=== PATIENT | female | born 1965 | race Hispanic/Latino ===

== ENCOUNTER 2016-06-14 11:15 | Observation (INO) | payer OTHER ==
[2016-06-14 12:28] VITALS: BMI 34.7
[2016-06-14 13:37] LABS: ADD MANUAL DIFF? NO
[2016-06-14 13:48] LABS: BASO # 0.03 K/mm3 (0.0-2.0); BASO % 0.5 % (0.0-3.0); EOS # 0.1 (0.0-0.7); EOS % 2.2 % (1.5-5.0); GRAN # 4.18 (1.4-6.5); GRAN % 70.8 % (50.0-68.0); HEMATOCRIT 24.4 % (36.0-48.0); LYMPH # 1.3 (1.2-3.4); LYMPH % 21.9 % (22.0-35.0); MEAN CELL VOLUME 63.5 fL (80.0-105.0); MEAN CORPUSCULAR HEMOGLOBIN 17.4 pg (25.0-35.0); MEAN CORPUSCULAR HGB CONC 27.5 g/dl (31.0-37.0); MEAN PLATELET VOLUME 9.1 fl (7.0-11.0); MONO # 0.3 (0.1-0.6); MONO % 4.6 % (1.0-6.0); PLATELET COUNT 446 10^3/uL (120.0-450.0); RED CELL DISTRIBUTION WIDTH 21.1 % (11.5-14.5); WHITE BLOOD COUNT 5.9 10^3/ul (4.5-11.0)
[2016-06-14 14:02] LABS: INR 0.93 (0.93-1.08); PARTIAL THROMBOPLASTIN TIME 21.7 Seconds (23.7-30.8)
[2016-06-14 14:10] LABS: ALB/GLOB RATIO 1.2 (1.1-1.8); ALKALINE PHOSPHATASE 74 U/L (38-133); ALT/SGPT 12 U/L (7-56); AST/SGOT 30 U/L (15-39); BILIRUBIN,TOTAL 0.4 mg/dL (0.2-1.3); BLOOD UREA NITROGEN 10 mg/dL (7-21); CALCIUM 9.2 mg/dL (8.4-10.5); CARBON DIOXIDE 26 mmol/L (21-33); CHLORIDE 104 mmol/L (98-107); GFR AFRICAN-AMERICAN > 60; GLUCOSE,RANDOM 94 mg/dL (70-110); POTASSIUM 3.8 mmol/L (3.6-5.0); SODIUM 139 mmol/L (132-148); TOTAL PROTEIN 7.4 g/dL (5.8-8.3)
--- NOTE | 2016-06-14 14:30 | ED PDOC ---
Arrival/HPI - General Chief Complaint: Abnormal Labs Time Seen by Provider: 06/14/16 12:35 Historian: Patient - History of Present Illness Narrative History of Present Illness (Text): 06/14/16 12:48 A 50 year old female is sent into the emergency by PMD for a lower hemoglobin count. Patient notes a history of anemia and has been transfused in the past. Patient last transfusion was on 11/2015. Patient reports 2 month ago she had a hysterectomy due to DUB. She denies any blood in her urine or stool. Patient notes generalized weakness but denies any headache or other complaints at this time. PMD: Dr. Asencio Past Medical History - Provider Review Nursing Documentation Reviewed: Yes - Cardiac Hx Hypertension: Yes - Hematological/Oncological Hx Anemia: Yes Hx Blood Transfusions: Yes Hx Blood Transfusion Reaction: No - Psychiatric Hx Substance Use: No - Surgical History Hx Hysterectomy: Yes Other/Comment: Bladder/kidney [id number] Family/Social History - Physician Review Nursing Documentation Reviewed: Yes Family/Social History: No Known Family HX Smoking Status: Never Smoked Hx Alcohol Use: No Hx Substance Use: No Allergies/Home Meds Allergies/Adverse Reactions: Allergies avocado Allergy (Verified 06/14/16 12:29) ANAPHYLAXIS bee venom protein (honey bee) Allergy (Verified 06/14/16 12:29) ANAPHYLAXIS iodine Allergy (Verified 06/14/16 12:29) ANAPHYLAXIS kiwi Allergy (Verified 06/14/16 12:29) RASH latex Allergy (Verified 06/14/16 12:29) RASH onion Allergy (Verified 06/14/16 12:29) ANAPHYLAXIS shellfish derived Allergy (Verified 06/14/16 12:29) ANAPHYLAXIS Sulfa (Sulfonamide Antibiotics) Allergy (Verified 06/14/16 12:29) ANGIOEDEMA Home Medications: Home Meds Medication Instructions Recorded Confirmed Unobtainable 06/14/16 06/14/16 Review of Systems - Physician Review All systems were reviewed & negative as marked: Yes - Review of Systems Constitutional: Fatigue Gastrointestinal: absent: Hematochezia Genitourinary Female: absent: Hematuria Physical Exam Vital Signs Reviewed: Yes Vital Signs Temp Pulse Resp BP Pulse Ox 06/14/16 13:43 69 18 168/86 H 100 06/14/16 12:32 98.0 F 76 16 178/98 H 100 Temperature: Afebrile Blood Pressure: Hypertensive Pulse: Regular Respiratory Rate: Normal Appearance: Positive for: Well-Appearing, Non-Toxic, Comfortable Pain Distress: None Mental Status: Positive for: Alert and Oriented X 3 - Systems Exam Head: Present: Atraumatic, Normocephalic Pupils: Present: PERRL Extroacular Muscles: Present: EOMI Conjunctiva: Present: Other (pale) Mouth: Present: Moist Mucous Membranes Neck: Present: Normal Range of Motion Respiratory/Chest: Present: Clear to Auscultation, Good Air Exchange. No: Respiratory Distress, Accessory Muscle Use Cardiovascular: Present: Regular Rate and Rhythm, Normal S1, S2. No: Murmurs Abdomen: Present: Normal Bowel Sounds. No: Tenderness, Distention, Peritoneal Signs Back: Present: Normal Inspection Upper Extremity: Present: Normal Inspection. No: Cyanosis, Edema Lower Extremity: Present: Normal Inspection. No: Edema Neurological: Present: GCS=15, CN II-XII Intact, Speech Normal Skin: Present: Warm, Dry, Normal Color. No: Rashes Psychiatric: Present: Alert, Oriented x 3, Normal Insight, Normal Concentration Medical Decision Making ED Course and Treatment: 06/14/16 12:48 Impression: A 50 year old female with a low hemoglobin count. Differential Diagnosis include but are not limited to: anemia Plan: -- Labs -- Urinalysis -- Reassess and disposition Progress Notes: 06/14/16 14:[address] Asencio, who is aware and agrees with the plan to place the patient in observation for symptomatic anemia. I have discussed the results and plan with the patient, who expresses understanding. Patient given the opportunity to ask question, all questions were answered and there is agreement with the plan to be admitted to the hospital. - Lab Interpretations Lab Results: 06/14/16 13:00 06/14/16 13:00 Lab Results 06/14/16 14:00: Blood Type Confirm A POSITIVE 06/14/16 13:00: WBC 5.9, RBC 3.84, Hgb 6.7 L*, Hct 24.4 L, MCV 63.5 L, MCH 17.4 L, MCHC 27.5 L, RDW 21.1 H, Plt Count 446, MPV 9.1, Gran % 70.8 H, Lymph % (Auto ) 21.9 L, [place] % (Auto) 4.6, Eos % (Auto) 2.2, Baso % (Auto) 0.5, Gran # 4.18, Lymph # 1.3, [place] # 0.3, Eos # 0.1, Baso # 0.03, PT 10.0, INR 0.93, APTT 21.7 L , Sodium 139, Potassium 3.8, Chloride 104, Carbon Dioxide 26, Anion Gap 13, BUN 10, Creatinine 0.7, Est GFR ( Amer) > 60, Est GFR (Non-Af Amer) > 60, Random Glucose 94, Calcium 9.2, Total Bilirubin 0.4, AST 30, ALT 12, Alkaline Phosphatase 74, Total Protein 7.4, Albumin 4.1, Globulin 3.3, Albumin/Globulin Ratio 1.2, Blood Type A POSITIVE, Antibody Screen Negative, Crossmatch See Detail, BBK History Checked No verified bt I have reviewed the lab results: Yes - Scribe Statement The provider has reviewed the documentation as recorded by the Alexiboswaldo Wolf Provider Scribe Attestation: All medical record entries made by the Alexiboswaldo were at my direction and personally dictated by me. I have reviewed the chart and agree that the record accurately reflects my personal performance of the history, physical exam, medical decision making, and the department course for this patient. I have also personally directed, reviewed, and agree with the discharge instructions and disposition. Disposition/Present on Arrival - Present on Arrival Any Indicators Present on Arrival: No History of DVT/PE: No History of Uncontrolled Diabetes: No Urinary Catheter: No History of Decub. Ulcer: No History Surgical Site Infection Following: None - Disposition Have Diagnosis and Disposition been Completed?: Yes Diagnosis: Anemia Disposition: HOSPITALIZED Disposition Time: 14:10 Patient Plan: Admission Condition: STABLE
--- NOTE | 2016-06-14 16:49 | CP.PCM.PN ---
Subjective - Date & Time of Evaluation Date of Evaluation: 06/14/16 Time of Evaluation: 16:45 - Subjective Subjective: called by nurse pt ,s bp is 206/96 .pt is on norvasc and losartan and has not taken her meds today. pt is very anxious.pt is admitted for anemia. Objective - Vital Signs/Intake and Output Vital Signs (last 24 hours): Temp Pulse Resp BP Pulse Ox 98.0 F 69 18 168/86 H 100 06/14/16 12:32 06/14/16 13:43 06/14/16 13:43 06/14/16 13:43 06/14/16 13:43 - Labs Labs: PT 10.0 Seconds (9.9-11.8) 06/14/16 13:00 INR 0.93 (0.93-1.08) 06/14/16 13:00 APTT 21.7 Seconds (23.7-30.8) L 06/14/16 13:00 - Constitutional Appears: No Acute Distress - Head Exam Head Exam: NORMOCEPHALIC - Eye Exam Eye Exam: Normal appearance Pupil Exam: PERRL - ENT Exam ENT Exam: Mucous Membranes Moist - Neck Exam Neck Exam: Full ROM - Respiratory Exam Respiratory Exam: Clear to Ausculation Bilateral, NORMAL BREATHING PATTERN - Cardiovascular Exam Cardiovascular Exam: RRR, +S1, +S2 - GI/Abdominal Exam GI & Abdominal Exam: Soft, Normal Bowel Sounds - Rectal Exam Rectal Exam: Deferred - Neurological Exam Neurological Exam: Alert, Awake, Oriented x3 - Psychiatric Exam Psychiatric exam: Anxious - Skin Skin Exam: Dry, Normal Color, Warm Assessment and Plan - Assessment and Plan (Free Text) Assessment: hypertensive urgency. anemia. Plan: will give stat dose of norvasc and losartan.and xanex 0.25mg x1 now. and repeat bp.
--- NOTE | 2016-06-14 18:07 | HP ---
HISTORY OF PRESENT ILLNESS: The patient is a 50-year-old female admitted through the Emergency Dep[facility] for anemia. The patient underwent total abdominal hysterectomy on 04/19/2016. She denies any perioperative transfusions. She presented to my office 2-3 days ago and had a hemoglobin of 6.7. She now presents with a hemoglobin of 6.7. She denies any vaginal bleeding. No melena, no bright red blood per rectum, no abdominal pain. No f emmy, no chills. She denies any hematuria. PAST MEDICAL HISTORY: Includes hypertension, history of migraine, history of peptic ulcer disease an d GERD. There is no history of diabetes mellitus or cancer. PAST SURGICAL HISTORY: Includes status post total abdominal hysterectomy on 04/19/2016. The patient is also status post ileal reconstructive surgery in 2001. ALLERGIES: THE PATIENT REPORTS MULTIPLE ALLERGIES INCLUDING ALLERGIES TO LATEX, SHELLFISH, KIWI, BEE POLLEN AND IODINE. CURRENT MEDICATIONS: Include losartan 50 mg daily, amlodipine 5 mg daily, Protonix 40 mg daily, Topa max 75 mg daily. SOCIAL HISTORY: She denies any history of tobacco, alcohol or drug use. She is independent with ADL s and IADLs. FAMILY HISTORY: Positive for heart disease, COPD and cancer. REVIEW OF SYSTEMS: Essentially negative other than above. There is no abdominal pain, no jaundice, no chest pain, no shortness of breath, no swelling of the legs. No nausea, no vomiting, no diarrhea. PHYSICAL EXAMINATION: GENERAL: The patient is a well-developed female in no acute distress. VITAL SIGNS: Blood pressure 204/96, pulse 72, temperature 98, respiratory rate 18. HEENT: Head is normocephalic, atraumatic. Pupils equal, round, reactive to light. Extraocular move ments intact. NECK: Supple, with no thyromegaly, no carotid bruit. LUNGS: Clear. HEART: Regular rate and rhythm with no murmurs, rubs or gallops. ABDOMEN: Soft, nontender, bowel sounds are normoactive. EXTREMITIES: Without cyanosis, clubbing, or edema. NEUROLOGIC: The patient is awake and oriented x 3 without focal sensory or motor deficits. SKIN: Warm and dry. LABORATORY DATA: WBC is 5.9, hemoglobin 6.7, hematocrit 24.4, MCV 63.5. Sodium was 139, potassium 3 .8, chloride 104, CO2 26, BUN 10, creatinine 0.7, glucose 94. PT is 10.0, PTT 21.7. IMPRESSION: 1. Anemia, status post total abdominal hysterectomy on 04/19/2016. Rule out retroperitoneal bleed. 2. History of peptic ulcer disease/gastroesophageal reflux disease, rule out gastrointestinal bleed. 3. Uncontrolled hypertension. 4. Migraine. PLAN: The patient is admitted to the medical-surgical floor. Will transfuse 2 units packed red cell s. Will order a CT of the abdomen and pelvis without contrast to rule out retroperitoneal bleed. Mo nitor hemoglobin and hematocrit. Continue present medications. Restart blood pressure medications. The patient denies taking her blood pressure medications today. Will obtain GI consult as well as c corine p.o. Protonix. Ric Asencio JD, MD cc: [id number] TT: 06/14/2016 18:06:29 sc
--- NOTE | 2016-06-14 23:35 | CP.PCM.PN ---
Subjective - Date & Time of Evaluation Date of Evaluation: 06/14/16 Time of Evaluation: 23:34 - Subjective Subjective: Earlier patient was seen for complaint of headache. Stated that she had frontal and occipital head ache.Mild head ache. She has history of migraines.Has been on topamax.Imitrex does not help. No aura.No other complaints. Later on asked for sleeping pill also. Pertinent medical record was reviewed. This 50 year old white woman was admitted for anemia. Has PMH of migraine,HTN,PUD,GERD, S/P ELVIS, S/P ileal reconstructive surgery. Objective - Vital Signs/Intake and Output Vital Signs (last 24 hours): Temp Pulse Resp BP Pulse Ox 98.1 F 82 20 138/96 H 100 06/14/16 23:19 06/14/16 23:19 06/14/16 23:19 06/14/16 23:19 06/14/16 16:00 Intake and Output: 06/14/16 06/15/16 18:59 06:59 Intake Total 0 1525 Balance 0 1525 - Medications Medications: Current Medications Alprazolam (Xanax) 0.25 mg PO BID PRN; Protocol PRN Reason: Anxiety Stop: 06/21/16 18:01 Amlodipine Besylate (Norvasc) 5 mg PO DAILY DENA Losartan Potassium (Cozaar) 50 mg PO DAILY DENA Pantoprazole Sodium (Protonix Ec Tab) 40 mg PO 0630 DENA Topiramate (Topamax) 75 mg PO DAILY DENA PRN Reason: Protocol - Labs Labs: PT 10.0 Seconds (9.9-11.8) 06/14/16 13:00 INR 0.93 (0.93-1.08) 06/14/16 13:00 APTT 21.7 Seconds (23.7-30.8) L 06/14/16 13:00 - Constitutional Appears: Well, No Acute Distress - Head Exam Head Exam: ATRAUMATIC, NORMAL INSPECTION, NORMOCEPHALIC - Eye Exam Eye Exam: Normal appearance - ENT Exam ENT Exam: Normal External Ear Exam - Neck Exam Neck Exam: Normal Inspection - Respiratory Exam Respiratory Exam: NORMAL BREATHING PATTERN - Cardiovascular Exam Cardiovascular Exam: absent: JVD - GI/Abdominal Exam GI & Abdominal Exam: absent: Distended - Rectal Exam Rectal Exam: Deferred - Extremities Exam Extremities Exam: Normal Inspection - Back Exam Back Exam: NORMAL INSPECTION - Neurological Exam Neurological Exam: Alert, Oriented x3 - Psychiatric Exam Psychiatric exam: Normal Affect, Normal Mood - Skin Skin Exam: Normal Color Assessment and Plan - Assessment and Plan (Free Text) Assessment: A/P:Headache-stress. Insomnia. Anemia. HTN. Migraine. GERD. Tylenol 650 mg PO STAT. Ambien 5 mg PO STAT.
--- NOTE | 2016-06-15 03:44 | CP.PCM.PN ---
Subjective - Date & Time of Evaluation Date of Evaluation: 06/15/16 Time of Evaluation: 03:43 - Subjective Subjective: BP 204/102. Asymptomatic. Rx,:Labetolol 20 mg IV x 1. Labetolol 20 mg IV was administered by me slowly. Objective - Vital Signs/Intake and Output Vital Signs (last 24 hours): Temp Pulse Resp BP Pulse Ox 97.8 F 67 20 182/100 H 100 06/15/16 02:19 06/15/16 02:19 06/15/16 02:19 06/15/16 02:28 06/14/16 16:00 Intake and Output: 06/14/16 06/15/16 18:59 06:59 Intake Total 0 1850 Balance 0 1850 - Medications Medications: Current Medications Alprazolam (Xanax) 0.25 mg PO BID PRN; Protocol PRN Reason: Anxiety Stop: 06/21/16 18:01 Amlodipine Besylate (Norvasc) 5 mg PO DAILY DENA Losartan Potassium (Cozaar) 50 mg PO DAILY DENA Pantoprazole Sodium (Protonix Ec Tab) 40 mg PO 0630 DENA Topiramate (Topamax) 75 mg PO DAILY DENA PRN Reason: Protocol - Labs Labs: PT 10.0 Seconds (9.9-11.8) 06/14/16 13:00 INR 0.93 (0.93-1.08) 06/14/16 13:00 APTT 21.7 Seconds (23.7-30.8) L 06/14/16 13:00
[2016-06-15] MEDS ORDERED: Labetalol 5 mg/ml Inj 20ML IV STA (03:46)
[2016-06-15] MEDS: Pantoprazole 40 mg EC Tab PO SCH (05:34)
[2016-06-15 10:04] LABS: ADD MANUAL DIFF? NO
[2016-06-15 10:10] LABS: BASO # 0.02 K/mm3 (0.0-2.0); BASO % 0.3 % (0.0-3.0); EOS # 0.1 (0.0-0.7); EOS % 1.8 % (1.5-5.0); GRAN # 4.97 (1.4-6.5); GRAN % 75.9 % (50.0-68.0); HEMATOCRIT 30.5 % (36.0-48.0); LYMPH % 15.7 % (22.0-35.0); MEAN CELL VOLUME 65.5 fL (80.0-105.0); MEAN CORPUSCULAR HEMOGLOBIN 19.5 pg (25.0-35.0); MEAN CORPUSCULAR HGB CONC 29.8 g/dl (31.0-37.0); MEAN PLATELET VOLUME 8.8 fl (7.0-11.0); MONO # 0.4 (0.1-0.6); MONO % 6.3 % (1.0-6.0); PLATELET COUNT 373 10^3/uL (120.0-450.0); RED CELL DISTRIBUTION WIDTH 21.5 % (11.5-14.5); WHITE BLOOD COUNT 6.6 10^3/ul (4.5-11.0)
[2016-06-15 10:23] LABS: ALB/GLOB RATIO 1.2 (1.1-1.8); ALKALINE PHOSPHATASE 77 U/L (38-133); ALT/SGPT 13 U/L (7-56); AST/SGOT 26 U/L (15-39); BILIRUBIN,TOTAL 0.7 mg/dL (0.2-1.3); BLOOD UREA NITROGEN 7 mg/dL (7-21); CALCIUM 9.1 mg/dL (8.4-10.5); CARBON DIOXIDE 28 mmol/L (21-33); CHLORIDE 102 mmol/L (98-107); GFR AFRICAN-AMERICAN > 60; GLUCOSE,RANDOM 93 mg/dL (70-110); POTASSIUM 3.5 mmol/L (3.6-5.0); SODIUM 141 mmol/L (132-148); TOTAL PROTEIN 7.7 g/dL (5.8-8.3)
[2016-06-15] MEDS ORDERED: Propofol 10 mg/ml Inj (20 ML) ONE (11:27)
[2016-06-15] MEDS ORDERED: Lidocaine 1% Inj (20ml) ONE (11:27)
[2016-06-15] MEDS ORDERED: Lactated Ringer's 1,000 ML IV SCH (11:30)
--- NOTE | 2016-06-15 11:53 | CT ---
PROCEDURE: CT Abdomen and Pelvis without intravenous contrast HISTORY: anemia r/o retroperitoneal bleed COMPARISON: None. TECHNIQUE: Axial and reformatted coronal and sagittal CT images of the abdomen and pelvis were obtained without IV or oral contrast administration.. Contrast Dose: 0 Radiation dose: Total exam DLP = 1096.52 mGy-cm. FINDINGS: LOWER THORAX: No evidence of acute pathology. Mild pericardial thickening versus trace pericardial effusion. LIVER: Mild hepatomegaly is seen. There is a 1.9 centimeter low-attenuation lesion at the inferior aspect of the right liver lobe of uncertain etiology. GALLBLADDER AND BILE DUCTS: Unremarkable. PANCREAS: Unremarkable. No gross lesion or ductal dilatation. SPLEEN: Unremarkable. ADRENALS: Unremarkable. No mass. KIDNEYS AND URETERS: There is duplicating collecting system of the left kidney noted. The left kidney lower pole moiety is small in size /atrophic with foci of cortical thinning and punctate cortical calcification. No evidence of hydronephrosis. There is stone/calcifications seen at the left UV junction of the left renal lower pole moiety ureter measures 9.1 millimeter. The right kidney is grossly unremarkable. VASCULATURE: Unremarkable. No aortic aneurysm. BOWEL: Unremarkable. No obstruction. No gross mural thickening. Scattered few colonic diverticulosis are seen without evidence of diverticulitis. APPENDIX: Unremarkable. Normal appendix. PERITONEUM: Unremarkable. No free fluid. No free air. LYMPH NODES: Unremarkable. No enlarged lymph nodes. BLADDER: Unremarkable. REPRODUCTIVE: The uterus is not visualized. Correlate clinically for prior hysterectomy. 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 OTHER FINDINGS: None. IMPRESSION: No evidence of intraperitoneal or retroperitoneal hematoma. 1.9 centimeter low-attenuation lesion at the inferior aspect of the right liver lobe of uncertain etiology. 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 Suspicious for 9 millimeter stone at the distal left renal lower moiety ureter at or adjacent to the UV junction. No evidence of hydronephrosis. 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 Low-attenuation lesion at the left kidney measures 1.8 centimeter.
[2016-06-15] MEDS ORDERED: Peg-Electrolyte Oral Soln 4L (Golytely) PO ONE (15:00)
[2016-06-15] MEDS ORDERED: Potassium Chloride 20 mEq ER Tab PO ONE (16:47)
--- NOTE | 2016-06-15 17:18 | PN ---
DATE: 06/15/2016 SUBJECTIVE: The patient is lying in bed in no acute distress, status post EGD. There is no abdomina l pain, no nausea, no vomiting, no melena, no bright red blood per rectum. OBJECTIVE: VITAL SIGNS: Blood pressure 147/67, temperature 98.4, pulse 70, respiratory rate 16. LUNGS: Clear. HEART: Regular rate and rhythm. ABDOMEN: Soft, nontender. Bowel sounds are normoactive. EXTREMITIES: Without cyanosis, clubbing, or edema. NEUROLOGIC: The patient is awake and oriented x 3 without focal sensory or motor deficits. SKIN: Warm and dry. LABORATORY DATA: WBC 6.6, hemoglobin 9.1. Status post transfusion 2 units packed red cells, hematoc rit 30.5, sodium 140, potassium 3.5, chloride 102, CO2 of 28, BUN 7, creatinine 0.7, glucose 93. CT scan of the abdomen and pelvis shows a 1.9 cm lesion of the inferior right lobe of liver as well as a 1.8 cm lesion of the left kidney. There is no evidence of retroperitoneal bleed. IMPRESSION: 1. Anemia of uncertain etiology. 2. History of peptic ulcer disease/gastroesophageal reflux disease, status post esophagogastroduoden oscopy. 3. Hypertension. 4. Migraine. 5. A 1.9 cm lesion, inferior right liver. 6. A 1.8 cm lesion, left kidney. PLAN: The patient is for colonoscopy tomorrow by Dr. Madison. We will monitor hemoglobin and hemat ocrit. We will obtain renal and abdominal ultrasounds to evaluate abnormalities found on CT scan. Ric Asencio JD, MD cc: [id number] TT: 06/15/2016 17:17:34 Confirmation # [id number] Dictation # [id number] tn
[2016-06-16] MEDS: Pantoprazole 40 mg EC Tab PO SCH (05:29)
[2016-06-16 06:54] LABS: ADD MANUAL DIFF? NO
[2016-06-16 07:04] LABS: BASO # 0.02 K/mm3 (0.0-2.0); BASO % 0.5 % (0.0-3.0); EOS # 0.2 (0.0-0.7); EOS % 5.1 % (1.5-5.0); GRAN # 2.55 (1.4-6.5); GRAN % 61.9 % (50.0-68.0); HEMATOCRIT 31.2 % (36.0-48.0); LYMPH # 1.1 (1.2-3.4); LYMPH % 25.7 % (22.0-35.0); MEAN CELL VOLUME 65.7 fL (80.0-105.0); MEAN CORPUSCULAR HEMOGLOBIN 19.6 pg (25.0-35.0); MEAN CORPUSCULAR HGB CONC 29.8 g/dl (31.0-37.0); MEAN PLATELET VOLUME 9.1 fl (7.0-11.0); MONO # 0.3 (0.1-0.6); MONO % 6.8 % (1.0-6.0); PLATELET COUNT 398 10^3/uL (120.0-450.0); RED CELL DISTRIBUTION WIDTH 21.9 % (11.5-14.5); WHITE BLOOD COUNT 4.1 10^3/ul (4.5-11.0)
[2016-06-16 07:17] LABS: ALB/GLOB RATIO 1.2 (1.1-1.8); ALKALINE PHOSPHATASE 79 U/L (38-133); ALT/SGPT 15 U/L (7-56); AST/SGOT 27 U/L (15-39); BILIRUBIN,TOTAL 0.5 mg/dL (0.2-1.3); BLOOD UREA NITROGEN 7 mg/dL (7-21); CALCIUM 9.3 mg/dL (8.4-10.5); CARBON DIOXIDE 25 mmol/L (21-33); CHLORIDE 105 mmol/L (98-107); GFR AFRICAN-AMERICAN > 60; GLUCOSE,RANDOM 97 mg/dL (70-110); POTASSIUM 3.8 mmol/L (3.6-5.0); SODIUM 141 mmol/L (132-148); TOTAL PROTEIN 7.4 g/dL (5.8-8.3)
--- NOTE | 2016-06-16 08:35 | US ---
HISTORY: Lesion right inf liver/left kidney on CT COMPARISON: CT abdomen and pelvis 06/15/2016 TECHNIQUE: Sonographic evaluation of the abdomen. FINDINGS: LIVER: Measures 18.1 x 10.3 x 10.2 cm. Liver is mildly enlarged. Increased echogenicity of the liver parenchyma. No intrahepatic bile duct dilatation. The previously CT referenced 1.9 cm low-attenuation lesion at the inferior aspect of the right liver is not demonstrated on this exam. Consider a targeted liver ultrasound attention to the posterior segment of the inferior right hepatic lobe bordering the right posterior lateral ribs . GALLBLADDER: Unremarkable. No gallstones. COMMON BILE DUCT: Measures 5 mm. No stones. No dilatation. PANCREAS: Unremarkable as visualized. No mass. No ductal dilatation. RIGHT KIDNEY: Measures 10.4cm. Normal echogenicity. No calculus, mass, or hydronephrosis. LEFT KIDNEY: Measures 11.2cm. Normal echogenicity. No calculus, mass, or hydronephrosis. SPLEEN: Normal in size and contour. No mass. AORTA: No aneurysmal dilatation. IVC: Unremarkable. OTHER FINDINGS: None. IMPRESSION: The CT previously referenced hypo dense lesion is not demonstrated on this exam. Consider second-look targeted ultrasound as detailed/directed above Mild hepatomegaly. Mild diffuse increased echogenicity diffuse fatty infiltration, subtle liver parenchymal disease or extreme normal-variant are considerations
--- NOTE | 2016-06-16 10:05 | CON ---
DATE: 06/15/2016 REASON FOR CONSULTATION: Anemia. HISTORY OF PRESENT ILLNESS: This 50-year-old patient was found to have a very low hemoglobin on rout ine examination of 6.7, and sent to the Emergency Room for further evaluation. The patient denies an y bright blood per rectum or melena. No history of vomiting blood. Denies any abdominal complaints. OTHER PAST MEDICAL HISTORY: Significant for hypertension, migraine, history of peptic ulcer disease. The patient did have an endoscopy done in [place] in 07/2015, found to have an esophageal ulceration. The patient had a hysterectomy done. ____ did have in 2001 reconstructive ____ surgery. The patie nt did mention to me she had ____ surgery using ileal ____. ALLERGIES: LATEX, SHELLFISH, KIWI, POLLEN, IODINE. SOCIAL HISTORY: Denies smoking or alcohol. FAMILY HISTORY: Positive for a paternal uncle diagnosed with a ____ at the age of 40. REVIEW OF SYSTEMS: Positive as above. Other 10 systems reviewed unremarkable. PHYSICAL EXAMINATION: GENERAL: The patient is lying on the bed, not in acute distress. VITAL SIGNS: Temperature 98.4, pulse 73, blood pressure 132/74. HEENT: Atraumatic, anicteric. NECK: Supple. HEART: S1, S2 heard. LUNGS: Bilateral normal vesicular breath sounds. ABDOMEN: Soft. There is no mass palpable. No tenderness. EXTREMITIES: No edema. LABORATORY DATA: The patient did have 2 units of transfusion. Hemoglobin is now 9.1, hematocrit 30. 5. WBC 6.6, platelets 339. BUN 7, creatinine 0.7. Potassium 3.5. IMPRESSION: This 50-year-old patient admitted with severe anemia, history of esophageal ulcerations in the past. The patient would benefit from upper GI endoscopy. Informed consent was obtained. The patient underwent upper GI endoscopy earlier. Addendum: EGD was done, found to have gastritis, esophagitis, rule out Aldridge's, and biopsies were also taken for celiac disease. The patient did discuss with Dr. Asencio and scheduled for a colonoscopy in the a.m. We will continue to closely follow up her care and suggest further management based on the clinical c ourse. Kovil V Los MD cc: [id number] TT: 06/16/2016 09:58:13 Confirmation # [id number] Dictation # [id number] jn
--- NOTE | 2016-06-16 16:19 | PN ---
DATE: 06/16/2016 SUBJECTIVE: The patient is lying in bed in no acute distress. There is no abdominal pain. There is no active bleeding. OBJECTIVE: VITAL SIGNS: Blood pressure 141/80, temperature 98.2, pulse 85, respiratory rate 19. LUNGS: Clear. HEART: Regular rate and rhythm. ABDOMEN: Soft, nontender, bowel sounds are normoactive. EXTREMITIES: Without cyanosis, clubbing, or edema. NEUROLOGIC: The patient is awake and alert without focal, sensory or motor deficits. SKIN: Warm and dry. LABORATORY DATA: WBC is 4.1, hemoglobin 9.3, hematocrit 37.2. CMP is within normal limits. Abdomin al ultrasound is negative. IMPRESSION: 1. Microcytic anemia consistent with iron deficiency from blood loss. Rule out gastrointestinal ble ed. 2. History of peptic ulcer disease/gastroesophageal reflux disease. 3. Uncontrolled hypertension. 4. Migraine. PLAN: The patient is scheduled for colonoscopy today. Continue to monitor hemoglobin and hematocrit . Social work for discharge planning. Ric Asencio JD, MD cc: 353 TT: 06/16/2016 16:19:18 Confirmation # [id number] Dictation # [id number]
[2016-06-16] MEDS ORDERED: Lactated Ringer's 1,000 ML IV SCH (19:15)
[2016-06-17] MEDS: Pantoprazole 40 mg EC Tab PO SCH (05:56)
[2016-06-17 08:07] VITALS: BP 164/96; PULSE 72; RESP 18; TEMP 98.6; O2SAT 98
--- NOTE | 2016-06-17 14:41 | DS ---
HOSPITAL COURSE: The patient is a 50-year-old female admitted through the Emergency Department on with severe anemia with a hemoglobin of 6.7. The patient underwent transfusion of 2 units pa cked cells. She was seen in consultation by GI, Dr. Madison and underwent EGD and colonoscopy, whic h were negative for the source of her blood loss. The patient also had a CT scan of the abdomen whic h was negative for retroperitoneal bleed. There has been no bleeding. Hemoglobin is stable at 9.3 y esterday. There is no melena, no bright red blood per rectum, no hematemesis, no nausea, no vomiting , no fever, no chills, no jaundice. The patient is medically stable for discharge at the present [facility]. PHYSICAL EXAMINATION: VITAL SIGNS: Blood pressure 164/96, pulse 72, temperature 98.6, respiratory rate 18. LUNGS: Clear. HEART: Regular rate and rhythm. ABDOMEN: Soft, nontender, bowel sounds are normoactive. EXTREMITIES: Without cyanosis, clubbing, or edema. NEUROLOGIC: The patient is awake and oriented x 3 without focal sensory or motor deficits. SKIN: Warm and dry. IMPRESSION: 1. Microcytic anemia, rule out gastrointestinal blood loss. 2. History of peptic ulcer disease/gastroesophageal reflux disease. 3. Hypertension. 4. Migraine. PLAN: The patient will be discharged to home today in stable condition on the following medications: Losartan 50 mg daily, amlodipine 5 mg daily, Protonix 40 mg daily, Topamax 75 mg daily. She will b e maintained on a regular diet, activities ad libitum. She will be followed up as an outpatient with in the next 1-2 weeks and also by Dr. Madison. Ric Asencio JD, MD cc: 353 TT: 06/17/2016 14:40:37 sofia
== END 2016-06-17 13:16 | disposition home or self-care (01) ==
LOC: ED 11:15 → ERH 14:15 → 3RNO 15:19
PROVIDERS: ADMIT Internal Medicine; ATTEND Internal Medicine
DX: D50.9 Iron deficiency anemia, unspecified (principal); I16.0 Hypertensive urgency; G43.909 Migraine, unspecified, not intractable, without status migrainosus; K21.0 Gastro-esophageal reflux disease with esophagitis; Z87.11 Personal history of peptic ulcer disease; Z87.19 Personal history of other diseases of the digestive system; Z90.710 Acquired absence of both cervix and uterus; K29.70 Gastritis, unspecified, without bleeding; I10 Essential (primary) hypertension; G47.00 Insomnia, unspecified; Z82.5 Family history of asthma and other chronic lower respiratory diseases; Z82.49 Family history of ischemic heart disease and other diseases of the circulatory system; Z80.9 Family history of malignant neoplasm, unspecified; Z91.030 Bee allergy status; Z91.040 Latex allergy status; Z91.013 Allergy to seafood; Z88.2 Allergy status to sulfonamides; Z88.8 Allergy status to other drugs, medicaments and biological substances; Z87.892 Personal history of anaphylaxis; Z91.018 Allergy to other foods; K92.2 Gastrointestinal hemorrhage, unspecified; K57.30 Diverticulosis of large intestine without perforation or abscess without bleeding; K64.8 Other hemorrhoids; Q43.8 Other specified congenital malformations of intestine; K29.50 Unspecified chronic gastritis without bleeding
CPT/HCPCS: 36415; 36430; 43239; 45378; 74176; 76700; 80053; 85025; 85610; 85730; 86850; 86900; 86920; 88305; 88312; 88342; 99282; G0378; J1940; J2704; J3010; J7040; P9016

== ENCOUNTER 2016-07-23 14:28 | Emergency (ER) | payer OTHER ==
[2016-07-23 14:28] VITALS: BMI 34.7
[2016-07-23 15:21] VITALS: TEMP 98.8
[2016-07-23 15:51] LABS: ADD MANUAL DIFF? NO
[2016-07-23 16:03] LABS: BASO # 0.02 K/mm3 (0.0-2.0); BASO % 0.3 % (0.0-3.0); EOS # 0.1 (0.0-0.7); EOS % 1.2 % (1.5-5.0); GRAN # 4.32 (1.4-6.5); GRAN % 71.7 % (50.0-68.0); LYMPH # 1.3 (1.2-3.4); LYMPH % 21.3 % (22.0-35.0); MEAN CELL VOLUME 72.9 fL (80.0-105.0); MEAN CORPUSCULAR HEMOGLOBIN 22.3 pg (25.0-35.0); MEAN CORPUSCULAR HGB CONC 30.6 g/dl (31.0-37.0); MEAN PLATELET VOLUME 8.7 fl (7.0-11.0); MONO # 0.3 (0.1-0.6); MONO % 5.5 % (1.0-6.0); PLATELET COUNT 343 10^3/uL (120.0-450.0); RED CELL DISTRIBUTION WIDTH 29.7 % (11.5-14.5)
[2016-07-23 16:08] LABS: ALB/GLOB RATIO 1.1 (1.1-1.8); ALKALINE PHOSPHATASE 81 U/L (38-133); ALT/SGPT 25 U/L (7-56); AST/SGOT 32 U/L (15-39); BILIRUBIN,TOTAL 0.6 mg/dL (0.2-1.3); BLOOD UREA NITROGEN 15 mg/dL (7-21); CALCIUM 9.2 mg/dL (8.4-10.5); CARBON DIOXIDE 20 mmol/L (21-33); CHLORIDE 108 mmol/L (98-107); GFR AFRICAN-AMERICAN > 60; GLUCOSE,RANDOM 102 mg/dL (70-110); POTASSIUM 3.2 mmol/L (3.6-5.0); SODIUM 139 mmol/L (132-148); TOTAL PROTEIN 7.7 g/dL (5.8-8.3)
[2016-07-23] MEDS ORDERED: Potassium Chloride 20 mEq ER Tab PO STA (16:19)
--- NOTE | 2016-07-23 16:34 | US ---
PROCEDURE: Left lower extremity venous US HISTORY: Leg pain and swelling. Evaluate for DVT. PHYSICIAN(S): Tyree Albarran MD. TECHNIQUE: Duplex sonography and color-flow Doppler with graded compression were used to evaluate the deep venous system of the left lower extremity. FINDINGS: The visualized deep venous system of the left lower extremity is sonographically normal and compressible. Normal wave forms and augmentation are seen. There is no sonographic evidence for deep venous thrombosis in the visualized segments of the left lower extremity. IMPRESSION: 1. No sonographic evidence for deep venous thrombosis in the visualized segments of the left lower extremity.
--- NOTE | 2016-07-23 16:51 | ED PDOC ---
Arrival/HPI - General Chief Complaint: Lower Extremity Problem/Injury Time Seen by Provider: 07/23/16 15:26 Historian: Patient - History of Present Illness Narrative History of Present Illness (Text): 07/23/16 17:15 A 51-year-old female presents today with left leg pain with left leg swelling and paresthesias worsening over the past 4 days. Patient states over the past 4 days she's had increasing numbness sensation in the lower leg from the knee down. She is also complaining of cramping pain in the upper knee. Patient states she has been walking a lot and has a flareup of her back pain. She denies bladder or bowel incontinence. Denies abdominal pain. No urinary symptoms. No chest pain or shortness of breath. Patient states that she is able to move the lower extremity and that there is no weakness but she feels it decreased sensation along the in entire lower leg from the knee to the toes. Patient states he has a history of chronic back pain. Patient states she has been exercising more frequently and walking regularly and has had a 14 pound weight loss. She presents today because she was talking to a doctor who thought that she should be evaluated for a blood clot in the leg. No medications have been taken at home for pain. No other complaints Past Medical History - Provider Review Nursing Documentation Reviewed: Yes - Travel History Have you recently traveled outside [place] w/in the past 3 mons?: No - Infectious Disease Hx of Infectious Diseases: None - Tetanus Immunization Tetanus Immunization: Unknown - Reproductive Menopause: No - Cardiac Hx Cardiac Disorders: Yes Hx Hypertension: Yes - Pulmonary Hx Respiratory Disorders: No - Neurological Hx Neurological Disorder: Yes (MIGRAINE) - HEENT Hx HEENT Disorder: No (WEARS RX GLASSES) - Renal Hx Renal Disorder: No - Endocrine/Metabolic Hx Endocrine Disorders: No - Hematological/Oncological Hx Blood Transfusions: Yes Hx Blood Transfusion Reaction: No - Integumentary Hx Dermatological Disorder: No - Musculoskeletal/Rheumatological Hx Musculoskeletal Disorders: No Hx Falls: No - Gastrointestinal Hx Gastrointestinal Disorders: Yes Hx Gastroesophageal Reflux: Yes - Genitourinary/Gynecological Hx Genitourinary Disorders: Yes (TOTAL ABDOMINAL HYSTERECTOMY 04-19-16) - Psychiatric Hx Psychophysiologic Disorder: No Hx Substance Use: No - Surgical History Hx Hysterectomy: Yes Other/Comment: Bladder/kidney sx-2001 - Anesthesia Hx Anesthesia Reactions: No Hx Malignant Hyperthermia: No Family/Social History - Physician Review Nursing Documentation Reviewed: Yes Family/Social History: Unknown Family HX Smoking Status: Never Smoked Hx Alcohol Use: No Hx Substance Use: No Allergies/Home Meds Allergies/Adverse Reactions: Allergies avocado Allergy (Verified 07/23/16 15:10) ANAPHYLAXIS bee venom protein (honey bee) Allergy (Verified 07/23/16 15:10) ANAPHYLAXIS iodine Allergy (Verified 06/14/16 18:44) ANAPHYLAXIS kiwi Allergy (Verified 07/23/16 15:10) RASH latex Allergy (Verified 06/14/16 18:44) RASH onion Allergy (Verified 07/23/16 15:10) ANAPHYLAXIS shellfish derived Allergy (Verified 07/23/16 15:10) ANAPHYLAXIS Sulfa (Sulfonamide Antibiotics) Allergy (Verified 07/23/16 15:10) ANGIOEDEMA Home Medications: Home Meds Medication Instructions Recorded Confirmed Losartan [Cozaar] 50 mg PO DAILY 06/14/16 07/23/16 Pantoprazole Sodium [Protonix] 40 mg PO DAILY 06/14/16 07/23/16 amLODIPine [Norvasc] 10 mg PO DAILY 06/14/16 07/23/16 Topiramate [Topamax] 75 mg PO DAILY 07/23/16 07/23/16 Review of Systems - Review of Systems Constitutional: absent: Fatigue, Fevers Respiratory: absent: SOB, Cough Cardiovascular: absent: Chest Pain, Palpitations Gastrointestinal: absent: Abdominal Pain, Diarrhea, Nausea, Vomiting Musculoskeletal: Arthralgias, Other (Paresthesias). absent: Back Pain, Neck Pain Skin: Normal. absent: Rash, Pruritis Neurological: absent: Headache, Dizziness Physical Exam Vital Signs Reviewed: Yes Vital Signs Temp Pulse Resp BP Pulse Ox 07/23/16 17:32 79 17 128/70 99 07/23/16 15:50 98.8 F 85 18 130/68 98 07/23/16 15:06 98.8 F 85 16 130/68 100 Temperature: Afebrile Blood Pressure: Normal Pulse: Regular Respiratory Rate: Normal Appearance: Positive for: Well-Appearing, Non-Toxic, Comfortable Pain Distress: None Mental Status: Positive for: Alert and Oriented X 3 - Systems Exam Head: Present: Atraumatic Mouth: Present: Moist Mucous Membranes Neck: Present: Normal Range of Motion Respiratory/Chest: Present: Clear to Auscultation, Good Air Exchange. No: Respiratory Distress, Accessory Muscle Use Cardiovascular: Present: Regular Rate and Rhythm, Normal S1, S2. No: Murmurs Abdomen: No: Tenderness Back: Present: Normal Inspection. No: Midline Tenderness, Paraspinal Tenderness , Pain with Leg Raise Upper Extremity: Present: Normal Inspection Lower Extremity: Present: NORMAL PULSES, Normal ROM, Swelling, Capillary Refill < 2 s. No: CALF TENDERNESS, Tenderness, Erythema, Deformity, Neurovascularly Intact (SLIGHTLY DECREASED SENSATION IN THE LEFT LOWER LEG FROM THE KNEE TO THE TOE; PULSES INTACT; CAP REFILL <2. ) Neurological: Present: GCS=15, Speech Normal Skin: Present: Warm, Dry, Normal Color. No: Rashes Psychiatric: Present: Alert, Oriented x 3 Medical Decision Making ED Course and Treatment: 07/23/16 17:21 A 51-year-old female nontoxic well-appearing no distress presents with a four- day history of worsening paresthesia in the left lower leg CBC within normal limits CMP potassium 3.2 Potassium replaced. Ultrasound of the left lower extremity reveals no DVT read by Dr. Tyree Albarran MRI of the lumbar spine has been ordered. Patient with a history of chronic back pain now with paresthesias of the left leg. Patient refuses MRI of the lumbar spine. She states she does not want to stay in the hospital for a long period of time. She states she has a follow-up with her primary care physician on . Patient states she recently had an MRI of the pelvis and stomach. Diagnosis chest importance of follow-up with primary care physician within the next 2 days. Advised to immediately return if symptoms worsen persist or if new concerning symptoms develop. I stressed the importance of immediate return if the patient develops saddle paresthesias, bladder or bowel incontinence, any urinary changes or paresthesias worsen become bilateral. cane given Patient was seen and evaluated by Dr. MONTE Patient verbalizes understanding of discharge instructions and need for immediate followup. all aspects of this case were discussed the attending of record. IMPRESSION: Paresthesias FOLLOW UP WITH YOUR PRIMARY CARE PHYSICIAN WITHIN THE NEXT 2 DAYS RETURN IMMEDIATELY IF SYMPTOMS WORSEN,PERSIST OR IF NEW SYMPTOMS DEVELOP; WORSENING NUMBNESS, INABILITY TO URINATE, BLADDER OR BOWEL INCONTINENCE OR IF ANY OTHER CONCERNING SYMPTOMS DEVELOP. - Lab Interpretations Lab Results: 07/23/16 15:38 07/23/16 15:38 Lab Results 07/23/16 15:38: WBC 6.0 D, RBC 4.80, Hgb 10.7 L, Hct 35.0 L, MCV 72.9 L, MCH 22.3 L, MCHC 30.6 L, RDW 29.7 H, Plt Count 343, MPV 8.7, Gran % 71.7 H, Lymph % (Auto) 21.3 L, [place] % (Auto) 5.5, Eos % (Auto) 1.2 L, Baso % (Auto) 0.3, Gran # 4.32, Lymph # 1.3, [place] # 0.3, Eos # 0.1, Baso # 0.02 07/23/16 15:38: Sodium 139, Potassium 3.2 L, Chloride 108 H, Carbon Dioxide 20 L , Anion Gap 14, BUN 15, Creatinine 0.7, Est GFR ( Amer) > 60, Est GFR ( Non-Af Amer) > 60, Random Glucose 102, Calcium 9.2, Total Bilirubin 0.6, AST 32 , ALT 25, Alkaline Phosphatase 81, Total Protein 7.7, Albumin 4.1, Globulin 3.6 , Albumin/Globulin Ratio 1.1 - RAD Interpretation Radiology Orders: 07/23/16 15:38 DUPLEX LOWER EXTRM VEIN LEFT [US] Stat - Medication Orders Current Medication Orders: Discontinued Medications Potassium Chloride (K-Dur 20 Meq Er Tab) 40 meq PO STAT STA Stop: 07/23/16 16:20 Last Admin: 07/23/16 16:51 Dose: 40 meq Disposition/Present on Arrival - Present on Arrival Any Indicators Present on Arrival: No History of DVT/PE: No History of Uncontrolled Diabetes: No Urinary Catheter: No History of Decub. Ulcer: No History Surgical Site Infection Following: None - Disposition Have Diagnosis and Disposition been Completed?: Yes Diagnosis: Leg paresthesia Disposition: HOME/ ROUTINE Disposition Time: 16:48 Patient Plan: Discharge Condition: GOOD Discharge Instructions (ExitCare): Paresthesia (ED) Additional Instructions: FOLLOW UP WITH YOUR PRIMARY CARE PHYSICIAN WITHIN THE NEXT 2 DAYS RETURN IMMEDIATELY IF SYMPTOMS WORSEN,PERSIST OR IF NEW SYMPTOMS DEVELOP; WORSENING NUMBNESS, INABILITY TO URINATE, BLADDER OR BOWEL INCONTINENCE OR IF ANY OTHER CONCERNING SYMPTOMS DEVELOP. Referrals: Ric Asencio JD, MD [Primary Care Provider] - Follow up with primary Garry Woodson MD [Staff Provider] - Follow up with primary Maico Etienne MD [Staff Provider] - Follow up with primary
[2016-07-23 17:33] VITALS: BP 128/70; PULSE 79; RESP 17; O2SAT 99
== END 2016-07-23 17:32 | disposition home or self-care (01) ==
LOC: ED 14:28
DX: R20.2 Paresthesia of skin (principal)

== ENCOUNTER 2017-05-21 09:55 | Emergency (ER) | payer OTHER ==
[2017-05-21 10:01] VITALS: BP 170/79; RESP 18; TEMP 97.9; BMI 35.6
[2017-05-21 10:04] VITALS: PULSE 67; O2SAT 97
[2017-05-21] MEDS ORDERED: DiphenhydrAMINE 50 mg/ml Inj IVP STA (10:28)
--- NOTE | 2017-05-21 10:30 | ED PDOC ---
Arrival/HPI - General Chief Complaint: Headache Time Seen by Provider: 05/21/17 09:56 Historian: Patient - History of Present Illness Narrative History of Present Illness (Text): 05/21/17 10:26 Tia Henry is a 51 year old female, with a past medical history of migraines, hypertension, peptic ulcer disease, and GERD, who presents to the emergency department complaining of a persistent headache for 3 weeks. Patient describes the pain as a constant pressure. Patient denies any fever, chills, chest pain, shortness of breath, nausea, vomiting, diarrhea, back pain, neck pain, dizziness or any other complaints. pt saw pmd and neuro already, but states symptoms are persistent. 05/21/17 13:59 Time/Duration: < month (3 weeks) Symptom Course: Unchanged Activities at Onset: Light Context: Home Past Medical History - Provider Review Nursing Documentation Reviewed: Yes - Infectious Disease Hx of Infectious Diseases: None - Tetanus Immunization Tetanus Immunization: Unknown - Cardiac Hx Cardiac Disorders: Yes Hx Hypertension: Yes - Pulmonary Hx Respiratory Disorders: No - Neurological Hx Neurological Disorder: Yes (MIGRAINE) - HEENT Hx HEENT Disorder: No (WEARS RX GLASSES) - Renal Hx Renal Disorder: No - Endocrine/Metabolic Hx Endocrine Disorders: No - Hematological/Oncological Hx Blood Transfusions: Yes Hx Blood Transfusion Reaction: No - Integumentary Hx Dermatological Disorder: No - Musculoskeletal/Rheumatological Hx Musculoskeletal Disorders: No Hx Falls: No - Gastrointestinal Hx Gastrointestinal Disorders: Yes Hx Gastroesophageal Reflux: Yes - Genitourinary/Gynecological Hx Genitourinary Disorders: Yes (TOTAL ABDOMINAL HYSTERECTOMY 04-19-16) - Psychiatric Hx Psychophysiologic Disorder: No Hx Substance Use: No - Surgical History Hx Hysterectomy: Yes Other/Comment: Bladder/kidney sx-2001 - Anesthesia Hx Anesthesia Reactions: No Hx Malignant Hyperthermia: No Family/Social History - Physician Review Nursing Documentation Reviewed: Yes Family/Social History: Unknown Family HX Smoking Status: Never Smoked Hx Alcohol Use: No Hx Substance Use: No Allergies/Home Meds Allergies/Adverse Reactions: Allergies avocado Allergy (Verified 05/21/17 10:01) ANAPHYLAXIS bee venom protein (honey bee) Allergy (Verified 05/21/17 10:01) ANAPHYLAXIS iodine Allergy (Verified 05/21/17 10:01) ANAPHYLAXIS kiwi Allergy (Verified 05/21/17 10:01) RASH latex Allergy (Verified 05/21/17 10:01) RASH onion Allergy (Verified 05/21/17 10:01) ANAPHYLAXIS shellfish derived Allergy (Verified 05/21/17 10:01) ANAPHYLAXIS Sulfa (Sulfonamide Antibiotics) Allergy (Verified 05/21/17 10:01) ANGIOEDEMA Home Medications: Home Meds Medication Instructions Recorded Confirmed Losartan [Cozaar] 100 mg PO DAILY 06/14/16 05/21/17 Pantoprazole Sodium [Protonix] 40 mg PO DAILY 06/14/16 05/21/17 amLODIPine [Norvasc] 10 mg PO DAILY 06/14/16 05/21/17 Topiramate [Topamax] 50 mg PO DAILY 07/23/16 05/21/17 Acetaminophen/Butalbital/Caf 1 tab PO DAILY 05/21/17 05/21/17 [Fioricet] Amitriptyline [Elavil] 25 mg PO DAILY 05/21/17 05/21/17 Carvedilol [Coreg] 25 mg PO BID 05/21/17 05/21/17 Oxybutynin Chloride [Ditropan Xl] 5 mg PO QID 05/21/17 05/21/17 Propranolol HCl [Innopran Xl] 80 mg PO DAILY 05/21/17 05/21/17 Review of Systems - Physician Review All systems were reviewed & negative as marked: Yes - Review of Systems Constitutional: Normal Eyes: Normal ENT: Normal Respiratory: Normal. absent: SOB, Cough Cardiovascular: Normal. absent: Chest Pain Gastrointestinal: Normal. absent: Abdominal Pain, Diarrhea, Nausea, Vomiting Genitourinary Female: Normal. absent: Dysuria, Frequency, Hematuria, Urine Output Changes Musculoskeletal: Normal. absent: Back Pain, Neck Pain Skin: Normal. absent: Rash Neurological: Headache Endocrine: Normal Hemo/Lymphatic: Normal Psychiatric: Normal Physical Exam Vital Signs Reviewed: Yes Vital Signs Temp Pulse Resp BP Pulse Ox 05/21/17 10:02 97.9 F 67 18 170/79 H 97 05/21/17 10:01 97.9 F 65 18 170/79 H 98 Temperature: Afebrile Blood Pressure: Normal Pulse: Regular Respiratory Rate: Normal Appearance: Positive for: Well-Appearing, Non-Toxic, Comfortable Pain Distress: None Mental Status: Positive for: Alert and Oriented X 3 - Systems Exam Head: Present: Atraumatic, Normocephalic Pupils: Present: PERRL Extroacular Muscles: Present: EOMI Conjunctiva: Present: Normal Mouth: Present: Moist Mucous Membranes Neck: Present: Normal Range of Motion. No: Meningeal Signs, MIDLINE TENDERNESS , Paraspinal Tenderness Respiratory/Chest: Present: Clear to Auscultation, Good Air Exchange. No: Respiratory Distress, Accessory Muscle Use Cardiovascular: Present: Regular Rate and Rhythm, Normal S1, S2. No: Murmurs Abdomen: Present: Normal Bowel Sounds. No: Tenderness, Distention, Peritoneal Signs Back: Present: Normal Inspection Upper Extremity: Present: Normal Inspection. No: Cyanosis, Edema Lower Extremity: Present: Normal Inspection. No: Edema, CALF TENDERNESS, Cyanosis Neurological: Present: GCS=15, CN II-XII Intact, Speech Normal Skin: Present: Warm, Dry, Normal Color. No: Rashes Psychiatric: Present: Alert, Oriented x 3, Normal Insight, Normal Concentration Medical Decision Making ED Course and Treatment: 05/21/17 10:32 Impression: 51 year old female presents to the emergency department complaining of a headache for 3 weeks. no thunderclap features. Plan: -- CT Head -- Labs -- Benadryl -- Reglan -- HCG Qualitative Urine, Urinalysis -- Reassess and disposition Progress Notes: 05/21/17 12:25 Patient states her symptoms have improved and wants to be discharged. 05/21/17 12:26 CT Head reviewed, shows: HEMORRHAGE: No intracranial hemorrhage. BRAIN: Phelan-white matter differentiation is preserved. There is no mass, mass effect or abnormal extra-axial fluid collection. VENTRICLES: The ventricles are normal in size, shape and configuration. CALVARIUM: The skull base and calvarium are normal. PARANASAL SINUSES: Predominantly clear. MASTOID AIR CELLS: Predominantly clear. OTHER FINDINGS: None. IMPRESSION: No acute intracranial abnormality. 05/21/17 13:58 pain improved. neuro intact ambutory steady gait, no thunderclap features. pt states feels well for dc. return precautions advised. pt adivses she will see her neurologist. 05/21/17 13:59 - Lab Interpretations Lab Results: 05/21/17 10:55 05/21/17 10:55 Lab Results 05/21/17 11:30: Urine Color Yellow, Urine Appearance Clear, Urine pH 7.0, Ur Specific [place] 1.020, Urine Protein Trace H, Urine Glucose (UA) Negative, Urine Ketones Negative, Urine Blood Negative, Urine Nitrate Negative, Urine Bilirubin Negative, Urine Urobilinogen 0.2, Ur Leukocyte Esterase Small H, Urine RBC 0 - 2, Urine WBC 15 - 20, Ur Epithelial Cells 4 - 5, Urine Bacteria Few, Urine HCG, Qual Negative 05/21/17 10:55: Sodium 142, Potassium 4.4, Chloride 110 H, Carbon Dioxide 22, Anion Gap 15, BUN 14, Creatinine 0.7, Est GFR ( Amer) > 60, Est GFR (Non- Af Amer) > 60, Random Glucose 92, Calcium 9.2, Total Bilirubin 0.5, AST 28, ALT 24, Alkaline Phosphatase 67, Total Protein 7.3, Albumin 4.0, Globulin 3.3, Albumin/Globulin Ratio 1.2 05/21/17 10:55: PT 10.5, INR 0.91 L, APTT 30.3 05/21/17 10:55: WBC 3.8 L D, RBC 4.70, Hgb 13.3, Hct 40.8, MCV 86.8, MCH 28.3, MCHC 32.6, RDW 14.5, Plt Count 289, MPV 9.5, Gran % 61.2, Lymph % (Auto) 28.9, [place] % (Auto) 7.6 H, Eos % (Auto) 1.8, Baso % (Auto) 0.5, Gran # 2.35, Lymph # ( Auto) 1.1 L, [place] # (Auto) 0.3, Eos # (Auto) 0.1, Baso # (Auto) 0.02, ESR 18 - RAD Interpretation Radiology Orders: 05/21/17 11:03 HEAD W/O CONTRAST [CT] Stat - Medication Orders Current Medication Orders: Discontinued Medications Diphenhydramine HCl (Benadryl) 25 mg IVP STAT STA Stop: 05/21/17 10:29 Last Admin: 05/21/17 10:42 Dose: 25 mg IVP Administration Document 05/21/17 10:42 OCS (Rec: 05/21/17 10:42 OCS [id number]) Charges for Administration # of IVP Administrations 1 Metoclopramide HCl (Reglan) 10 mg IVP STAT STA Stop: 05/21/17 10:29 Last Admin: 05/21/17 10:43 Dose: 10 mg IVP Administration Document 05/21/17 10:43 OCS (Rec: 05/21/17 10:43 OCS [id number]) Charges for Administration # of IVP Administrations 1 - Scribe Statement The provider has reviewed the documentation as recorded by the Scribe Prerna Camp All medical record entries made by the Scribe were at my direction and personally dictated by me. I have reviewed the chart and agree that the record accurately reflects my personal performance of the history, physical exam, medical decision making, and the department course for this patient. I have also personally directed, reviewed, and agree with the discharge instructions and disposition. Disposition/Present on Arrival - Present on Arrival Any Indicators Present on Arrival: No History of DVT/PE: No History of Uncontrolled Diabetes: No Urinary Catheter: No History of Decub. Ulcer: No History Surgical Site Infection Following: None - Disposition Have Diagnosis and Disposition been Completed?: Yes Diagnosis: Headache Disposition: HOME/ ROUTINE Disposition Time: 10:00 Condition: STABLE Discharge Instructions (ExitCare): Headache, Adult Additional Instructions: return to er with worsening symptoms or concerns. Referrals: Ric Asencio JD, MD [Primary Care Provider] - Follow up with primary Mario Woodson MD [Staff Provider] - Follow up with primary Forms: [employer] ([place]), WORK NOTE
[2017-05-21 11:05] LABS: BASO # 0.02 K/mm3 (0.0-2.0); BASO % 0.5 % (0.0-3.0); EOS # 0.1 (0.0-0.7); EOS % 1.8 % (1.5-5.0); GRAN # 2.35 (1.4-6.5); GRAN % 61.2 % (50.0-68.0); HEMOGLOBIN 13.3 g/dL (12.0-16.0); LYMPH # 1.1 (1.2-3.4); LYMPH % 28.9 % (22.0-35.0); MEAN CELL VOLUME 86.8 fl (80.0-105.0); MEAN CORPUSCULAR HEMOGLOBIN 28.3 pg (25.0-35.0); MEAN CORPUSCULAR HGB CONC 32.6 g/dl (31.0-37.0); MEAN PLATELET VOLUME 9.5 fl (7.0-11.0); MONO # 0.3 (0.1-0.6); MONO % 7.6 % (1.0-6.0); RBC 4.7 10^6/uL (3.5-6.1); RED CELL DISTRIBUTION WIDTH 14.5 % (11.5-14.5); WHITE BLOOD COUNT 3.8 10^3/ul (4.5-11.0)
[2017-05-21 11:14] LABS: INR 0.91 (0.93-1.08); PARTIAL THROMBOPLASTIN TIME 30.3 Seconds (25.1-36.5); PROTHROMBIN TIME 10.5 SECONDS (9.4-12.5)
[2017-05-21 11:52] LABS: URINE BILIRUBIN NEGATIVE (NEGATIVE); URINE BLOOD NEGATIVE (NEGATIVE); URINE GLUCOSE (UA) NEGATIVE (NEGATIVE); URINE LEUKOCYTE ESTERASE SMALL Leu/uL (NEGATIVE); URINE NITRATE NEGATIVE (NEGATIVE); URINE PROTEIN TRACE mg/dL (<30 mg/dL); URINE UROBILINOGEN 0.2 E.U./dL (<1 E.U./dL)
[2017-05-21 11:53] LABS: URINE APPEARANCE CLEAR (CLEAR); URINE COLOR YELLOW (YELLOW)
[2017-05-21 11:54] LABS: CALCIUM 9.2 mg/dL (8.4-10.5); GFR AFRICAN-AMERICAN > 60; GFR NON-AFRICAN AMERICAN > 60
[2017-05-21 11:55] LABS: HCG,QUALITATIVE URINE NEGATIVE (NEGATIVE)
[2017-05-21 12:07] LABS: URINE BACTERIA FEW (NEG); URINE RBC 0 - 2 /hpf (0-2); URINE WBC 15 - 20 /hpf (0-6)
[2017-05-21 12:08] LABS: ALB/GLOB RATIO 1.2 (1.1-1.8); ALT/SGPT 24 U/L (7-56); AST/SGOT 28 U/L (14-36); BLOOD UREA NITROGEN 14 mg/dL (7-21)
--- NOTE | 2017-05-21 12:12 | CT ---
PROCEDURE: CT HEAD WITHOUT CONTRAST. HISTORY: Headache COMPARISON: None available. TECHNIQUE: Axial computed tomography images were obtained through the head/brain without intravenous contrast. Radiation dose: Total exam DLP = 761.19 mGy-cm. This CT exam was performed using one or more of the following dose reduction techniques: Automated exposure control, adjustment of the mA and/or kV according to patient size, and/or use of iterative reconstruction technique. FINDINGS: HEMORRHAGE: No intracranial hemorrhage. BRAIN: Phelan-white matter differentiation is preserved. There is no mass, mass effect or abnormal extra-axial fluid collection. VENTRICLES: The ventricles are normal in size, shape and configuration. CALVARIUM: The skull base and calvarium are normal. PARANASAL SINUSES: Predominantly clear. MASTOID AIR CELLS: Predominantly clear. OTHER FINDINGS: None. IMPRESSION: No acute intracranial abnormality.
== END 2017-05-21 12:35 | disposition home or self-care (01) ==
LOC: ED 09:55
DX: R51 Headache (principal); I10 Essential (primary) hypertension; K21.9 Gastro-esophageal reflux disease without esophagitis
CPT/HCPCS: 70450; 80053; 81001; 84703; 85025; 85610; 85651; 85730; 87086; 87181; 96374; 96375; 99285; J1200; J2765

== ENCOUNTER 2017-07-29 11:52 | Observation (INO) | payer OTHER ==
--- NOTE | 2017-07-29 12:13 | ED PDOC ---
Arrival/HPI - General Time Seen by Provider: 07/29/17 11:59 Historian: Patient - History of Present Illness Narrative History of Present Illness (Text): 07/29/17 12:08 A 52 year old female, whose past medical history includes hypertension, peptic ulcer disease, GERD, migraines and hysterectomy, presents to the emergency department complaining of shortness of breath since last night. Patient states yesterday evening "while watching TV" she suddenly developed sensation "like there were bricks on my chest". States she felt like she couldn't take a deep breath, and discomfort would radiate to neck and shoulder. States sensation "worse when I lay down" and better when she sits up. Not worse with walking. Denies leg pain or swelling. Denies prolonged travel. Denies OCP or smoking. Denies prolonged immobilzation. Discomfort constant since last night, gradually worsening. Time/Duration: Other (last night) Symptom Course: Unchanged Quality: Other (heaviness) Context: Home Past Medical History - Provider Review Nursing Documentation Reviewed: Yes - Infectious Disease Hx of Infectious Diseases: None - Tetanus Immunization Tetanus Immunization: Unknown - Cardiac Hx Cardiac Disorders: Yes Hx Hypertension: Yes - Pulmonary Hx Respiratory Disorders: No - Neurological Hx Neurological Disorder: Yes (MIGRAINE) - HEENT Hx HEENT Disorder: No (WEARS RX GLASSES) - Renal Hx Renal Disorder: No - Endocrine/Metabolic Hx Endocrine Disorders: No - Hematological/Oncological Hx Blood Transfusions: Yes Hx Blood Transfusion Reaction: No - Integumentary Hx Dermatological Disorder: No - Musculoskeletal/Rheumatological Hx Musculoskeletal Disorders: No Hx Falls: No - Gastrointestinal Hx Gastrointestinal Disorders: Yes Hx Gastroesophageal Reflux: Yes - Genitourinary/Gynecological Hx Genitourinary Disorders: Yes (TOTAL ABDOMINAL HYSTERECTOMY 04-19-16) - Psychiatric Hx Psychophysiologic Disorder: No Hx Substance Use: No - Surgical History Hx Hysterectomy: Yes Other/Comment: Bladder/kidney [id number] - Anesthesia Hx Anesthesia Reactions: No Hx Malignant Hyperthermia: No Family/Social History - Physician Review Nursing Documentation Reviewed: Yes Family/Social History: CAD/ID (mother and grandmother) Smoking Status: Never Smoked Hx Alcohol Use: No Hx Substance Use: No Allergies/Home Meds Allergies/Adverse Reactions: Allergies avocado Allergy (Verified 07/29/17 12:28) ANAPHYLAXIS bee venom protein (honey bee) Allergy (Verified 07/29/17 12:28) ANAPHYLAXIS iodine Allergy (Verified 07/29/17 12:28) ANAPHYLAXIS kiwi Allergy (Verified 07/29/17 12:28) RASH latex Allergy (Verified 07/29/17 12:28) RASH onion Allergy (Verified 07/29/17 12:28) ANAPHYLAXIS shellfish derived Allergy (Verified 07/29/17 12:28) ANAPHYLAXIS Sulfa (Sulfonamide Antibiotics) Allergy (Verified 07/29/17 12:28) ANGIOEDEMA Home Medications: Home Meds Medication Instructions Recorded Confirmed Losartan [Cozaar] 100 mg PO DAILY 06/14/16 07/29/17 Pantoprazole Sodium [Protonix] 40 mg PO DAILY 06/14/16 07/29/17 amLODIPine [Norvasc] 10 mg PO DAILY 06/14/16 07/29/17 Topiramate [Topamax] 50 mg PO DAILY 07/23/16 07/29/17 Acetaminophen/Butalbital/Caf 1 tab PO DAILY 05/21/17 07/29/17 [Fioricet] Carvedilol [Coreg] 25 mg PO BID 05/21/17 07/29/17 Oxybutynin Chloride [Ditropan Xl] 5 mg PO QID 05/21/17 07/29/17 Review of Systems - Review of Systems Constitutional: Fatigue. absent: Fevers, Night Sweats Eyes: absent: Vision Changes ENT: Other (sensation of "tightness" to neck, no stridor). absent: Hearing Changes Respiratory: SOB. absent: Cough, Wheezing Cardiovascular: Chest Pain. absent: Palpitations, Edema, Calf Pain, Orthopnea, Syncope Gastrointestinal: Nausea. absent: Abdominal Pain, Diarrhea, Vomiting, Appetite Changes Genitourinary Female: absent: Dysuria, Frequency Musculoskeletal: absent: Back Pain Skin: absent: Rash Neurological: absent: Headache, Dizziness, Focal Weakness Endocrine: absent: Polyuria Hemo/Lymphatic: absent: Easy Bleeding Psychiatric: Anxiety. absent: Depression, Suicidal Ideation Physical Exam - Physical Exam Narrative Physical Exam (Text): Head: Atraumatic. Normocephalic. Eyes: PERRL. EOMI. Conjunctivae are not pale. ENT: Mucous membranes are moist and intact. Oropharynx is clear and symmetric. No drooling. No stridor. Neck: Supple. Full ROM. No JVD. No lymphadenopathy. No soft tissue swelling , patient with palpable pain over sternocleidomastoid with no edema, no erythema , no crepitus. Cardiovascular: Regular rate. Regular rhythm. No murmurs, rubs, or gallops. Distal pulses are 2+ and symmetric. RADIAL PULSES AND BLOOD PRESSURE EQUAL AND STRONG IN BOTH UPPER EXTREMITIES. Pulmonary/Chest: No evidence of respiratory distress. Clear to auscultation bilaterally. No wheezing, rales or rhonchi. Patient has palpable anterior chest wall pain. Abdominal: Soft and non-distended. Mild epigatric tenderness. No rebound, guarding, or rigidity. No organomegaly. Good bowel sounds. Back: No CVA tenderness. No deformity. Extremities: Pulses strong and equal in bother upper extremities. No calf tenderness. No edema. No cyanosis. No clubbing. Full range of motion in all extremities. Skin: Skin is warm and dry. No petechiae. No purpura. Neurological: Alert, awake, and oriented to person, place, time, and situation. Normal speech. Motor and sensory exam intact. Psychiatric: Good eye contact. Slightly anxious. Vital Signs Reviewed: Yes Vital Signs Temp Pulse Pulse Resp BP Pulse Ox 07/29/17 18:04 134/96 H 07/29/17 18:00 98.0 F 57 L 16 134/96 H 100 07/29/17 12:35 67 07/29/17 12:00 98.4 F 77 18 187/115 H 98 Temperature: Afebrile Blood Pressure: Hypertensive Pulse: Regular Respiratory Rate: Normal Appearance: Positive for: Well-Appearing, Non-Toxic, Comfortable Pain Distress: None Mental Status: Positive for: Alert and Oriented X 3 Medical Decision Making ED Course and Treatment: 07/29/17 12:09 Impression: A 52 year old female with shortness of breath and midsternal chest heaviness. Patient notes nausea. Differential Diagnosis included but are not limited to: ID vs. Pulmonary embolism vs. Dissection vs. Reflux gastritis Plan: -- Chest xray -- EKG -- Labs -- Urinalysis -- Nitroglycerin and Protonix -- Reassess and disposition Prior Visits: Notes and results from previous visits were reviewed. Patient had an endoscopy performed on 06/15/2016 which showed: Report Date: 06/15/2016 10:52:32 Procedure: Upper GI endoscopy Dictated By: Dr. Esha Madison Impression: - Z-line irregular, 36 cm from the incisors. Biopsied. - Chronic gastritis. Biopsied. - Normal examined duodenum. Biopsied. Progress Notes: 07/29/17 12:[address] Ric Asencio, regarding initial history and physical exam. Request central office worker Dr. Le for consult. Hydralazine IV ordered. Patient however with improved BP prior to administration of hydralazine. She took aspirin this morning prior to arrival. She has strong family hx of CAD, ID in family. She has not had cardiac workup for several years. There is positional component to discomfort, worse when laying down. As there is associated tightness in throat with no sign of obstruction on CT, ? component of gastritis/esophagitis. No hematemsis noted. No significant cardiac rubs noted. Not hypotensive. No prior EKG for comparison. Pulses equal in both upper extremities. On re-exam at 16:30, denies any pain or discomfort and BP is controlled. Report Date : 07/29/2017 13:45:30 Procedure: Chest xray Dictator : Beck Tamez MD IMPRESSION: No active disease. Will admit to Dr. Ric Asencio service, I have consulted with Dr. Le and reviewed treatment plan with patient. UTI noted. She is afebrile, no cva tenderness, no abdominal pain. Urine she reports "has been darker lately." Will administer antibiotics for UTI. - Lab Interpretations Lab Results: 07/29/17 12:45 07/29/17 12:45 Lab Results 07/29/17 14:30: Urine Color yellow, Urine Appearance Clear, Urine pH 6.0, Ur Specific [place] 1.020, Urine Protein 30 H, Urine Glucose (UA) Negative, Urine Ketones Trace H, Urine Blood Negative, Urine Nitrate Positive H, Urine Bilirubin Negative, Urine Urobilinogen 0.2, Ur Leukocyte Esterase Small H, Urine RBC 2 - 5, Urine WBC 10 - 15, Ur Epithelial Cells 6 - 8, Urine Bacteria Mod 07/29/17 12:45: Sodium 141, Potassium 3.8, Chloride 106, Carbon Dioxide 21, Anion Gap 18, BUN 17, Creatinine 0.8, Est GFR ( Amer) > 60, Est GFR (Non- Af Amer) > 60, Random Glucose 110, Calcium 9.0, Magnesium 2.1, Total Bilirubin 0.4, AST 21, ALT 22, Alkaline Phosphatase 65, Lactate Dehydrogenase 614, Total Creatine Kinase 44, Troponin I < 0.01, NT-Pro-B Natriuret Pep 318, Total Protein 7.5, Albumin 4.4, Globulin 3.1, Albumin/Globulin Ratio 1.4, Amylase 69, Lipase 88 07/29/17 12:45: PT 11.1, INR 0.97, APTT 25.7, D-Dimer, Quantitative 218 07/29/17 12:45: WBC 5.1 D, RBC 4.99, Hgb 14.1, Hct 42.3, MCV 84.8, MCH 28.3, MCHC 33.3, RDW 14.0, Plt Count 334, MPV 9.6, Gran % 64.8, Lymph % (Auto) 24.5, [place] % (Auto) 8.5 H, Eos % (Auto) 1.6, Baso % (Auto) 0.6, Gran # 3.28, Lymph # ( Auto) 1.2, [place] # (Auto) 0.4, Eos # (Auto) 0.1, Baso # (Auto) 0.03 - RAD Interpretation Radiology Orders: 07/29/17 12:15 CHEST PORTABLE [RAD] Stat 07/29/17 14:23 NECK & CHEST W/O CONTRAST [CT] Stat Data Communications Technician: Radiologist - EKG Interpretation EKG Interpretation (Text): 07/29/17 18:13 EKG at 11:53 normal sinus rhythm rate of [address] and t wave abnormality Interpreted by ED Physician: Yes Type: 12 lead EKG - Medication Orders Current Medication Orders: Amlodipine Besylate (Norvasc) 10 mg PO DAILY [facility] Aspirin (Ecotrin) 81 mg PO DAILY [facility] Carvedilol (Coreg) 25 mg PO BID [facility] Hydrochlorothiazide (Hydrodiuril) 25 mg PO DAILY [facility] Losartan Potassium (Cozaar) 100 mg PO DAILY [facility] Spironolactone (Aldactone) 25 mg PO DAILY [facility] Discontinued Medications Amlodipine Besylate (Norvasc) 10 mg PO STAT [facility] Stop: 07/29/17 17:48 Last Admin: 07/29/17 18:04 Dose: Not Given Non-Admin Reason: BP Parameters Not Met MAR Blood Pressure Document 07/29/17 18:04 [email or web address] (Rec: 07/29/17 18:05 [facility] [id number]) Blood Pressure Blood Pressure (100/60-150/90 mm Hg) 134/96 Aspirin (Ecotrin) 81 mg PO STAT STA Stop: 07/29/17 18:01 Enoxaparin Sodium (Lovenox) 80 mg SC STAT STA PRN Reason: Protocol Stop: 07/29/17 18:00 Hydralazine HCl (Apresoline) 10 mg IVP STAT ONE Stop: 07/29/17 12:46 Last Admin: 07/29/17 12:48 Dose: Not Given Non-Admin Reason: Patient Refused Hydrochlorothiazide (Hydrodiuril) 25 mg PO STAT STA Stop: 07/29/17 17:51 Last Admin: 07/29/17 18:05 Dose: Not Given Non-Admin Reason: BP Parameters Not Met Losartan Potassium (Cozaar) 50 mg PO STAT STA Stop: 07/29/17 17:48 Last Admin: 07/29/17 18:04 Dose: Not Given Non-Admin Reason: BP Parameters Not Met Comments: 134/96 Pantoprazole Sodium (Protonix Inj) 40 mg IVP ONCE STA Stop: 07/29/17 12:17 Last Admin: 07/29/17 12:47 Dose: 40 mg IVP Administration Document 07/29/17 12:47 [facility] (Rec: 07/29/17 12:47 [facility] [id number]) Charges for Administration # of IVP Administrations 1 Spironolactone (Aldactone) 25 mg PO STAT STA Stop: 07/29/17 17:51 - Scribe Statement The provider has reviewed the documentation as recorded by the Jeimy Alfaro Provider Scribe Attestation: All medical record entries made by the Alexiboswaldo were at my direction and personally dictated by me. I have reviewed the chart and agree that the record accurately reflects my personal performance of the history, physical exam, medical decision making, and the department course for this patient. I have also personally directed, reviewed, and agree with the discharge instructions and disposition. Disposition/Present on Arrival - Present on Arrival Any Indicators Present on Arrival: No History of DVT/PE: No History of Uncontrolled Diabetes: No Urinary Catheter: No History Surgical Site Infection Following: None - Disposition Have Diagnosis and Disposition been Completed?: Yes Diagnosis: Chest pain, Hypertension, UTI (urinary tract infection) Disposition: HOSPITALIZED Disposition Time: 14:15 Patient Plan: Admission, Telemetry Condition: FAIR
[2017-07-29] MEDS ORDERED: Nitroglycerin 2% Ointment Foilpak UD TOP STA (12:16)
[2017-07-29 13:05] LABS: BASO # 0.03 K/mm3 (0.0-2.0); BASO % 0.6 % (0.0-3.0); EOS # 0.1 (0.0-0.7); EOS % 1.6 % (1.5-5.0); GRAN # 3.28 (1.4-6.5); GRAN % 64.8 % (50.0-68.0); HEMOGLOBIN 14.1 g/dL (12.0-16.0); LYMPH # 1.2 (1.2-3.4); LYMPH % 24.5 % (22.0-35.0); MEAN CELL VOLUME 84.8 fl (80.0-105.0); MEAN CORPUSCULAR HEMOGLOBIN 28.3 pg (25.0-35.0); MEAN CORPUSCULAR HGB CONC 33.3 g/dl (31.0-37.0); MEAN PLATELET VOLUME 9.6 fl (7.0-11.0); MONO # 0.4 (0.1-0.6); MONO % 8.5 % (1.0-6.0); RBC 4.99 10^6/uL (3.5-6.1); WHITE BLOOD COUNT 5.1 10^3/ul (4.5-11.0)
[2017-07-29 13:16] LABS: ALB/GLOB RATIO 1.4 (1.1-1.8); ALBUMIN 4.4 g/dL (3.0-4.8); ALT/SGPT 22 U/L (7-56); AMYLASE 69 U/L (35-125); AST/SGOT 21 U/L (14-36); BLOOD UREA NITROGEN 17 mg/dL (7-21); GFR AFRICAN-AMERICAN > 60; GFR NON-AFRICAN AMERICAN > 60; LIPASE 88 U/L (23-300)
[2017-07-29 13:19] LABS: INR 0.97 (0.93-1.08); PARTIAL THROMBOPLASTIN TIME 25.7 Seconds (25.1-36.5); PROTHROMBIN TIME 11.1 SECONDS (9.4-12.5)
[2017-07-29 13:27] LABS: B-TYPE NATRIURETIC PEPTIDE 318 pg/mL (0-450); TROPONIN I < 0.01 ng/mL
--- NOTE | 2017-07-29 13:47 | RAD ---
HISTORY: chest pain COMPARISON: No prior. FINDINGS: LUNGS: No active pulmonary disease. PLEURA: No significant pleural effusion identified, no pneumothorax apparent. CARDIOVASCULAR: Mild cardiomegaly OSSEOUS STRUCTURES: No significant abnormalities. VISUALIZED UPPER ABDOMEN: Normal. OTHER FINDINGS: None. IMPRESSION: No active disease.
[2017-07-29 15:19] LABS: URINE APPEARANCE CLEAR (CLEAR); URINE BILIRUBIN NEGATIVE (NEGATIVE); URINE BLOOD NEGATIVE (NEGATIVE); URINE GLUCOSE (UA) NEGATIVE (NEGATIVE); URINE LEUKOCYTE ESTERASE SMALL Leu/uL (NEGATIVE); URINE PROTEIN 30 mg/dL (<30 mg/dL); URINE UROBILINOGEN 0.2 E.U./dL (<1 E.U./dL)
[2017-07-29 15:27] LABS: URINE BACTERIA MOD (NEG)
--- NOTE | 2017-07-29 16:20 | CT ---
PROCEDURE: CT Neck, Chest, Abdomen and Pelvis without contrast HISTORY: neck and chest pain, iodine allergy COMPARISON: None. TECHNIQUE: Contrast dose: None Radiation dose: Total exam DLP = 807 mGy-cm. This CT exam was performed using one or more of the following dose reduction techniques: Automated exposure control, adjustment of the mA and/or kV according to patient size, and/or use of iterative reconstruction technique. FINDINGS: CT OF THE NECK: PHARYNX: Nasopharynx: Unremarkable. Oropharnx: Unremarkable. Hypopharynx: Unremarkable. LYMPH NODES: Unremarkable. VASCULATURE: Unremarkable. GLANDS: Unremarkable. CERVICAL SPINE: Unremarkable. CT OF THE CHEST: LUNGS: Clear lungs. Visualized airway clear. MEDIASTINUM: Unremarkable thoracic aorta. No aneurysm or dissection. Normal sized heart. Pulmonary arterial truck unremarkable. No vascular congestion. No lymphadenopathy. PLEURA: No pleural fluid. No pneumothorax. BONES: No fracture. No destructive lesion. IMPRESSION: Negative study
[2017-07-29] MEDS ORDERED: Enoxaparin 80 mg Syringe SC STA (17:59)
[2017-07-29] MEDS ORDERED: cefTRIAXone 1 gm 1 GM/100 ML BAG IVPB STA (18:16)
[2017-07-29 18:41] VITALS: RESP 18
--- NOTE | 2017-07-29 18:50 | CARD ---
APPROVED REPORT EKG Measurement Heart [id number] <Conclusion> Normal sinus rhythm Nonspecific ST and T wave abnormality Abnormal ECG
[2017-07-29 20:29] VITALS: BMI 35.3
[2017-07-29 21:26] LABS: TROPONIN I < 0.01 ng/mL
--- NOTE | 2017-07-30 04:23 | CON ---
DATE: 07/29/2017 REASON FOR CONSULTATION AND FOLLOWUP: Chest pain, cardiac evaluation. BRIEF CLINICAL HISTORY: This is a 52-year-old female with past medical history of hypertension, multiple antihypertensive medications, history of peptic ulcer disease, history of gastroesophageal reflux , history of migraine, came to the emergency room with one-day history of chest pain, more so on lying down, feels that something sitting on the chest, feels a little better on sitting up and can breathe better. Denies any prior episode of chest pain or weak or so far dyspnea on exertion or chest pain on exertion prior to this episode. PAST MEDICAL HISTORY: Significant for migraine, history of peptic ulcer disease, and history of gastroesophageal reflux. PAST SURGICAL HISTORY: Significant for hysterectomy. SOCIAL HISTORY: Denies smoking. Denies any history of alcohol abuse. History of stress test two to three years ago and was told negative. FAMILY HISTORY: Significant for coronary artery disease. Mother has congestive heart failure. REVIEW OF SYSTEMS: As per HPI. PHYSICAL EXAMINATION: GENERAL: As follows: Height of the patient is 5 feet 2 inches. Weight of the patient is 196 pounds, body mass index 36 kg/m2. VITAL SIGNS: Temperature afebrile, heart rate 77, blood pressure 187/115. HEENT: PERRLA, intact. NECK: Supple. No carotid bruit or thyromegaly. CHEST: Clear to auscultation. HEART: S1 and S2 regular. ABDOMEN: Soft. EXTREMITIES: Clubbing and cyanosis negative. LABORATORY DATA: Blood workup as follows; WBC , hemoglobin 14.1, hematocrit 42.3, platelet count 334. Chemistry shows sodium 141, potassium 3.8, chloride 106, carbon dioxide 21, anion gap of 18, BUN 17, creatinine 0.8. Troponin 0.01, negative. EKG shows normal sinus nonspecific ST-T changes noted. IMPRESSION: The patient complained of chest pain and says that feels better on bending forward and more get short of breath on lying down; denies any prior history of dyspnea on exertion; obesity; hypertension, multiple meds; history of migraine; status post hysterectomy; history of prior shortness of breath when the patient was anemic prior to hysterectomy, but since then, the patient is not anemic after hysterectomy, does not feel any episode of chest pain. Though the chest pain appears a little bit it is too early to rule out any acute coronary artery syndrome, though is unlikely. RECOMMENDATIONS: Follow up serial CPK; troponin, first troponin was at 12:00, repeat another at 8:00 p.m., another one in the morning; also get lipid profile, TSH, hemoglobin A1c. We will get echo to assess LV function. Since the patient is not anemic, we will give one dose of Lovenox and further recommendation depending on the hospital course. We will follow with you. If CPK, troponin remains flat and echo looks okay, may be consider a stress test for risk stratification. If the troponin remains abnormal, positive, we may consider cardiac catheterization, discussed with the patient. We will follow with you. We will also resume the medication, we will give extra dose of amlodipine now and 25 mg of Coreg in the evening. I will give also losartan 50, hydrochlorothiazide spironolactone as well. Further recommendations will be made depending on the hospital course and the finding of initial workup. We will follow with you. Thank you for providing us the opportunity in taking care of patient Tia Henry. Naomie Le MD
[2017-07-30 07:14] LABS: BASO # 0.03 K/mm3 (0.0-2.0); BASO % 0.6 % (0.0-3.0); EOS # 0.1 (0.0-0.7); EOS % 1.8 % (1.5-5.0); GRAN # 3.68 (1.4-6.5); GRAN % 67.5 % (50.0-68.0); HEMOGLOBIN 13.7 g/dL (12.0-16.0); LYMPH # 1.4 (1.2-3.4); MEAN CELL VOLUME 85.5 fl (80.0-105.0); MEAN CORPUSCULAR HGB CONC 32.8 g/dl (31.0-37.0); MEAN PLATELET VOLUME 9.2 fl (7.0-11.0); MONO # 0.3 (0.1-0.6); MONO % 5.1 % (1.0-6.0); RBC 4.89 10^6/uL (3.5-6.1); RED CELL DISTRIBUTION WIDTH 14.2 % (11.5-14.5); WHITE BLOOD COUNT 5.5 10^3/ul (4.5-11.0)
[2017-07-30 07:39] LABS: TROPONIN I < 0.01 ng/mL
[2017-07-30 07:40] LABS: ALB/GLOB RATIO 1.5 (1.1-1.8); ALBUMIN 4.5 g/dL (3.0-4.8); ALT/SGPT 26 U/L (7-56); AST/SGOT 21 U/L (14-36); BLOOD UREA NITROGEN 17 mg/dL (7-21); CALCIUM 9.2 mg/dL (8.4-10.5); GFR AFRICAN-AMERICAN > 60; GFR NON-AFRICAN AMERICAN > 60; HDL CHOLESTEROL 50 mg/dL (29-60)
[2017-07-30 07:41] LABS: LDL CHOLESTEROL 88 mg/dL (0-129)
--- NOTE | 2017-07-30 08:54 | CP.PCM.PN ---
Subjective - Date & Time of Evaluation Date of Evaluation: 07/30/17 Time of Evaluation: 06:55 - Subjective Subjective: Awake,ambulating to bathroom,denies chest pain, discomfort on chest, denies shortness of breath Reason for consultation and follow up: Cardiac evaluation, chest heaviness, shortness of breath,hypertension,GERD, peptic ulcer, migraines Seen and examined by me and Dr. Garcia Objective - Vital Signs/Intake and Output Vital Signs (last 24 hours): Temp Pulse Resp BP Pulse Ox 98.2 F 58 L 18 158/79 H 100 07/30/17 05:36 07/30/17 05:36 07/30/17 05:36 07/30/17 05:36 07/30/17 05:36 Intake and Output: 07/30/17 07/30/17 06:59 18:59 Intake Total 600 Balance 600 - Medications Medications: Current Medications Amlodipine Besylate (Norvasc) 10 mg PO DAILY [facility] Aspirin (Ecotrin) 81 mg PO DAILY [facility] Carvedilol (Coreg) 25 mg PO BID [facility] Last Admin: 07/29/17 18:37 Dose: 25 mg Hydrochlorothiazide (Hydrodiuril) 25 mg PO DAILY [facility] Losartan Potassium (Cozaar) 100 mg PO DAILY [facility] Spironolactone (Aldactone) 25 mg PO DAILY [facility] - Labs Labs: 07/30/17 06:30 07/30/17 06:30 PT 11.1 SECONDS (9.4-12.5) 07/29/17 12:45 INR 0.97 (0.93-1.08) 07/29/17 12:45 APTT 25.7 Seconds (25.1-36.5) 07/29/17 12:45 - Constitutional Appears: No Acute Distress - Eye Exam Eye Exam: Normal appearance Pupil Exam: NORMAL ACCOMODATION - ENT Exam ENT Exam: Mucous Membranes Moist - Respiratory Exam Respiratory Exam: Clear to Ausculation Bilateral, NORMAL BREATHING PATTERN - Cardiovascular Exam Cardiovascular Exam: REGULAR RHYTHM, +S1, +S2 - GI/Abdominal Exam GI & Abdominal Exam: Soft, Normal Bowel Sounds - Extremities Exam Extremities Exam: Normal Capillary Refill - Neurological Exam Neurological Exam: Alert, Awake, Oriented x3 - Psychiatric Exam Psychiatric exam: Normal Affect, Normal Mood - Skin Skin Exam: Intact, Normal Color, Warm Assessment and Plan - Assessment and Plan (Free Text) Assessment: A 52 year old female who came in to the ER due to shortness of breath and "like there were bricks on my chest" radiating to neck and shoulder. History of hypertension, peptic ulcer disease, GERD, migraines and hysterectomy. Had stress test 2-3 years ago and claimed to be normal. History of anemia with blood transfusion. Plan: Atypical chest pain Negative Troponins EKG NSR 60's non specific ST-T wave abnormality For ECHO to evaluate LV function Possible Stress test Controlled heart rate and blood pressure On Norvasc 10 mg daily,ASA 81 mg daily,Coreg 25 mg BID, Hydrodiuril 25 mg daily,Cozaar 100 mg daily,aldactone 25 mg daily Urine positive for UTI, consider antibiotic treatment Pain radiating to neck, Neck CT done - normal Continue current treatment Continue current medications Will follow up Plan and treatment discussed with Dr. Garcia
[2017-07-30 10:56] VITALS: PULSE 60
[2017-07-30 12:02] VITALS: BP 153/94; TEMP 98.6; O2SAT 96
--- NOTE | 2017-07-30 18:26 | CARD ---
APPROVED REPORT EXAM: Two-dimensional and M-mode echocardiogram with Doppler and color Doppler. INDICATION 2D DIMENSIONS IVSd1.1 (0.7-1.1cm)LVDd4.8 (3.9-5.9cm) PWd1.1 (0.7-1.1cm)LVDs3.3 (2.5-4.0cm) FS (%) 31.5 %LVEF (%)59.2 (>50%) M-Mode DIMENSIONS Left Atrium (MM)3.70 (2.5-4.0cm)Aortic Root2.90 (2.2-3.7cm) Aortic Cusp Exc.2.10 (1.5-2.0cm) Aortic Valve AoV Peak Jxpvevdi188.0cm/Harley Peak GR.8mmHg Mitral Valve MV E Bvhfgpaw08.6cm/sMV A Expgpgpt86.7cm/sE/A ratio1.1 TDI Lateral E' Peak V4.01cm/sMedial E' Peak V6.02cm/sE/Lateral E'17.1 E/Medial E'11.4 Tricuspid Valve TR Peak [id number]/sRAP [id number] Peak Gr.20mmHg [id number] LEFT VENTRICLE The left ventricle is normal size. There is normal left ventricular wall thickness. The left ventricular function is normal. EF-65% There is normal LV segmental wall motion. The left ventricular diastolic function is normal. No left ventricle thrombus noted on this study. There is no ventricular septal defect visualized. There is no left ventricular aneurysm. There is no mass noted in the left ventricle. RIGHT VENTRICLE The right ventricle is normal size. There is normal right ventricular wall thickness. The right ventricular systolic function is normal. ATRIA The left atrium is borderline dilated. The right atrium size is normal. The interatrial septum is intact with no evidence for an atrial septal defect. AORTIC VALVE The aortic valve is thickened but opens well. No aortic regurgitation is present. There is no aortic valvular stenosis. There is no aortic valvular vegetation. MITRAL VALVE The mitral valve is thickened but opens well. Mitral regurgitation is trace. There is no mitral valve stenosis. There is no evidence of mitral valve prolapse. TRICUSPID VALVE The tricuspid valve leaflets are thickened , but open well. There is trace tricuspid regurgitation.RVSP-30 mm of Hg There is no tricuspid valve stenosis. There is no tricuspid valve prolapse or vegetation. PULMONIC VALVE The pulmonary valve is normal in structure. There is no pulmonic valvular regurgitation. There is no pulmonic valvular stenosis. GREAT VESSELS The aortic root is normal in size. The ascending aorta is normal in size. The pulmonary artery is normal. The IVC is normal in size and collapses >50% with inspiration. PERICARDIAL EFFUSION There is no pleural effusion. There is no pericardial effusion. <Conclusion> There is normal left ventricular wall thickness. The left ventricular function is normal. EF-65% Mitral regurgitation is trace. There is trace tricuspid regurgitation.RVSP-30 mm of Hg The IVC is normal in size and collapses >50% with inspiration. There is no pericardial effusion.
--- NOTE | 2017-07-30 19:37 | HP ---
DATE OF EXAM: 07/30/2017 ADMISSION HISTORY AND PHYSICAL HISTORY OF PRESENT ILLNESS: The patient is a 52-year-old female who was admitted to the telemetry unit through the emergency department on 07/29/2017 with chest pressure, mild nausea, no vomiting and shortness of breath. Serial EKG and cardiac enzymes were negative for acute myocardial infarction or ischemia. The patient was seen in consultation by Dr. Garcia/Dr. Le and was felt that a workup as an outpatient including a stress test would be advisable. PAST MEDICAL HISTORY: Includes GERD, hypertension, history of migraines, hypercholesterolemia. PAST SURGICAL HISTORY: The patient is status post hysterectomy on 04/19/2016. She had an ileal reconstruction in 2001. CURRENT MEDICATIONS: Include Aldactone 25 mg daily, carvedilol 25 mg twice daily, losartan 100 mg daily, Ecotrin 81 mg daily, hydrochlorothiazide 25 mg daily, Norvasc 10 mg daily, and oxybutynin XL 5 mg two to three times daily for hyperhidrosis. ALLERGIES: AVOCADO, BEE VENOM, IODINE, KIWI, LATEX, ONION, SHELLFISH, AND SULFA DRUGS. SOCIAL HISTORY: The patient denies tobacco or alcohol use. REVIEW OF SYSTEMS: Essentially negative other than above. PHYSICAL EXAMINATION: GENERAL: The patient is a well-developed female in no acute distress. VITAL SIGNS: Blood pressure 153/94, temperature 98.6, pulse 60, respiratory rate 18. HEENT: Head: Normocephalic, atraumatic. Pupils equal, round, and reactive to light. Extraocular movements intact. NECK: Supple with no thyromegaly. No adenopathy. No carotid bruit. LUNGS: Clear. HEART: Regular rate and rhythm. ABDOMEN: Soft and nontender. Bowel sounds are normoactive. EXTREMITIES: Without cyanosis, clubbing or edema. NEUROLOGICALLY: The patient is awake and oriented x3 without focal sensory or motor deficits. SKIN: Warm and dry. LABORATORY DATA: WBC is 5.5, hemoglobin 13.7, hematocrit 41.8. Sodium 145, potassium 3.9, chloride 105, CO2 27, BUN 17, creatinine 0.8, glucose 111. CPK is 34. Troponin is less than 0.01 x3, amylase is 69, lipase 88. Chest x-ray shows no active disease. CT scan of the neck and chest was done, which was a negative study. IMPRESSION: 1. Atypical chest pain, rule out secondary to gastroesophageal reflux disease versus musculoskeletal. 2. Hypertension. 3. Hypercholesterolemia. 4. Migraine. 5. Hyperhidrosis. PLAN: The patient has been seen in consultation by Cardiology and is medically stable for discharge. She will follow up as an outpatient for a possible stress test. CORWIN Hall MD
--- NOTE | 2017-07-31 10:51 | DS ---
HOSPITAL COURSE: The patient is a 52-year-old female admitted through the Emergency Department on 07/29/2017 with precordial chest pain. The patient was admitted to the Telemetry Unit and had an uneventful course. Serial EKG and enzymes were negative for acute cardiac syndrome. The patient was seen by Cardiology, Dr. Garcia/Dr. Le and was deemed medically stable for discharge with followup as an outpatient for possible stress test. Physical examination and vital signs are as per admission history and physical dictated today. MEDICATIONS: The patient will be discharged on the following medications: Aldactone 25 mg daily, carvedilol 25 mg twice daily, losartan 100 mg daily, Ecotrin 81 mg daily, hydrochlorothiazide 25 mg daily, amlodipine 10 mg daily, Topamax 50 mg daily, Protonix 40 mg daily, oxybutynin 5 mg four times a day. and Fioricet one tablet p.o. every 6 hours p.r.n. headache. IMPRESSION: 1. Chest pain, atypical, rule out secondary gastroesophageal reflux disease versus musculoskeletal. 2. Hypertension. 3. Hypercholesterolemia. 4. Migraine headaches. 5. Hyperhidrosis. PLAN: The patient will be discharged to home today in stable condition on the above medications. She will be maintained on a heart-healthy diet. Activities ad libitum. She will be followed up as an outpatient within the next one to two weeks and for stress test with Dr. Garcia and Dr. Le. CORWIN Hall MD
== END 2017-07-30 13:35 | disposition home or self-care (01) ==
LOC: ED 11:52 → ERH 16:29 → 2RSO 18:53
PROVIDERS: ADMIT Internal Medicine; ATTEND Internal Medicine
DX: R07.89 Other chest pain (principal); K21.9 Gastro-esophageal reflux disease without esophagitis; I10 Essential (primary) hypertension; E78.00 Pure hypercholesterolemia, unspecified; G43.909 Migraine, unspecified, not intractable, without status migrainosus; R61 Generalized hyperhidrosis; Z82.49 Family history of ischemic heart disease and other diseases of the circulatory system; N39.0 Urinary tract infection, site not specified; K29.50 Unspecified chronic gastritis without bleeding; K27.9 Peptic ulcer, site unspecified, unspecified as acute or chronic, without hemorrhage or perforation; Z87.11 Personal history of peptic ulcer disease; Z90.710 Acquired absence of both cervix and uterus; Z68.36 Body mass index [BMI] 36.0-36.9, adult
CPT/HCPCS: 36415; 70490; 71045; 71250; 80053; 80061; 81001; 82150; 82550; 83036; 83615; 83690; 83735; 83880; 84100; 84443; 84484; 85025; 85378; 85610; 85730; 87086; 93005; 93306; 96374; 96375; 99285; C9113; G0378; J0696